=== PATIENT | female | born 1980 | race Two or more races ===

== ENCOUNTER 2016-03-13 23:58 | Emergency (ER) | payer MEDICAID ==
[~2016-03-13] VITALS: Ht 157.5 cm; Wt 72.6 kg
[2016-03-14 00:03] VITALS: BP 146/93
== END 2016-03-14 02:11 | disposition home or self-care (01) ==
LOC: ER 03-14 00:02
DX: J06.9 Acute upper respiratory infection, unspecified (principal); J45.909 Unspecified asthma, uncomplicated
CPT/HCPCS: 99281; A4606; Z7610; Z7502

== ENCOUNTER 2016-10-13 09:27 | Emergency (ER) | payer MEDICAID ==
[~2016-10-13] VITALS: Ht 165.1 cm; Wt 90.7 kg
--- NOTE | 2016-10-13 09:50 | NUR ---
BB DAUGHTER FROM HOME FOR ABD PAIN SINCE THIS AM. +NAUSEA AND VOMITING AND DIARRHEA. NAD NOTED. PT AAO X4, AMB WITH STEADY GAIT. RR EVEN AND UNLABORED. DR CENTENO AT BEDSIDE FOR EVAL.
[2016-10-13] MEDS ORDERED: ONDANSETRON 4 MG TAB.RAPDIS SL ONE (10:00)
[2016-10-13] MEDS ORDERED: KETOROLAC TROMETHAMINE INJ 60 MG/2 ML VIAL IM ONE (10:00)
[2016-10-13] MEDS ORDERED: ONDANSETRON HCL/PF 4 MG/2 ML VIAL ONE (10:03)
[2016-10-13] MEDS ORDERED: KETOROLAC TROMETHAMINE INJ 30 MG/ML VIAL ONE (10:03)
[2016-10-13 10:08] LABS: APPEARANCE,URINE Slightly Cloudy (CLEAR); BILIRUBIN,URINE SMALL (NEGATIVE); BLOOD, URINE Small Ery/uL (NEGATIVE); KETONES,URINE Trace (NEGATIVE); LEUKOCYTE ESTERASE ,URINE Trace (NEGATIVE); NITRITE, URINE Negative (NEGATIVE); PH,URINE 6.5 (5.0-8.0); PROTEIN,URINE Trace mg/dl (NEGATIVE); UGLUCOSE Negative (NEGATIVE); UROBILINOGEN,URINE 0.2 EU/dL (0.2)
[2016-10-13 10:08] LABS: BASOPHILS % (AUTO) 0.3 % (0.0-2.0); EOSINOPHILS # (AUTO) 0.2 /CMM (0.0-0.7); EOSINOPHILS % (AUTO) 2.1 % (0.0-6.0); HEMATOCRIT 45 % (33-45); HEMOGLOBIN 15.6 g/dL (11.5-14.8); LYMPHOCYTES # (AUTO) 2.7 /CMM (0.8-4.8); LYMPHOCYTES % (AUTO) 23.7 % (20.0-44.0); MEAN CORPUSCULAR HEMOGLOBIN 32 PG (26.0-33.0); MEAN CORPUSCULAR HGB CONC 35 g/dl (31.0-36.0); MEAN CORPUSCULAR VOLUME 93 fL (82-100); MONOCYTES # (AUTO) 0.7 /CMM (0.1-1.30); MONOCYTES % (AUTO) 5.9 % (2.0-12.0); NEUTROPHILS # (AUTO) 7.7 /CMM (1.8-8.9); PLATELET COUNT (AUTO) 263 /CMM (150-450); RDW COEFFICIENT OF VARIATION 12.3 (11.5-15.0); RED BLOOD CELL COUNT(AUTO) 4.88 MIL/uL (4.0-5.2); WHITE BLOOD COUNT (AUTO) 11.3 K/uL (4.3-11.0)
[2016-10-13 10:09] LABS: COLOR,URINE Dark Yellow (YELLOW)
[2016-10-13 10:12] LABS: PREGNANCY TEST URINE QUAL NEGATIVE (NEGATIVE)
[2016-10-13 10:18] LABS: BACTERIA,URINE Few /HPF (None Seen); MUCUS,URINE Few /LPF (None Seen); SQUAMOUS EPITHELIAL CELL,UR Few /HPF (None Seen)
[2016-10-13 10:25] LABS: CALCIUM, SERUM 8.5 mg/dL (8.5-10.1); CREATININE 0.7 mg/dL (0.6-1.3); POTASSIUM 3.5 mmol/L (3.5-5.1)
[2016-10-13] MEDS ORDERED: KETOROLAC TROMETHAMINE INJ 30 MG/ML VIAL IV ONE (10:30)
[2016-10-13] MEDS ORDERED: ONDANSETRON HCL/PF - ER 4 MG/2 ML VIAL IV ONE (10:30)
[2016-10-13 10:37] LABS: ALBUMIN 3.7 g/dL (3.4-5.0); BILIRUBIN,DIRECT 0.1 mg/dL (0.0-0.2); BILIRUBIN,TOTAL 0.3 mg/dL (0.2-1.0); TOTAL PROTEIN, SERUM 7.6 g/dL (6.4-8.2)
[2016-10-13] MEDS ORDERED: HYDROCODONE/APAP 5/325MG 1 EACH TABLET ONE (11:19)
[2016-10-13] MEDS ORDERED: HYDROCODONE/APAP 5/325MG 1 EACH TABLET PO ONE (11:30)
[2016-10-13 12:56] VITALS: BP 122/80
[2016-10-13] MEDS ORDERED: FAMOTIDINE (20 MG) 20 MG TABLET PO ONE (13:00)
== END 2016-10-13 12:59 | disposition home or self-care (01) ==
LOC: ER 09:29
DX: N39.0 Urinary tract infection, site not specified (principal); J45.909 Unspecified asthma, uncomplicated; K76.0 Fatty (change of) liver, not elsewhere classified; N20.0 Calculus of kidney; Z87.442 Personal history of urinary calculi
CPT/HCPCS: 36415; 74176; 76705; 80048; 80076; 81001; 83690; 84703; 85025; 96374; 96375; 99285; A4606; J1885; J2405 ×2; Z7610; 71250-TC; 81000-TC

== ENCOUNTER 2017-04-27 20:57 | Emergency (ER) | payer MEDICAID ==
[~2017-04-27] VITALS: Ht 167.6 cm; Wt 81.6 kg
--- NOTE | 2017-04-27 20:57 | NUR ---
PT BIB SELF FROM HOME, PT C/O HEADACHE X 2 WEEKS. NO SOB BUT PAIN 5/10. VSS A/OX4 NAD WILL CONTINUE TO MONITOR FOR ANY CHANGES
[2017-04-27] MEDS ORDERED: diphenhydrAMINE HCL 50 MG/ML VIAL ONE (22:50)
[2017-04-27] MEDS ORDERED: METOCLOPRAMIDE HCL 10 MG/2 ML VIAL ONE (22:50)
[2017-04-27] MEDS ORDERED: IV NS 0.9% 250 ML BAG IV ONE (23:00)
[2017-04-27] MEDS ORDERED: METOCLOPRAMIDE HCL 10 MG/2 ML VIAL IV ONE ×2 (23:00→23:30)
[2017-04-27] MEDS ORDERED: diphenhydrAMINE HCL 50 MG/ML VIAL IV ONE (23:00)
[2017-04-28 00:01] VITALS: BP 127/88
== END 2017-04-28 00:02 | disposition home or self-care (01) ==
LOC: ER 21:01
DX: G43.909 Migraine, unspecified, not intractable, without status migrainosus (principal); J45.909 Unspecified asthma, uncomplicated
CPT/HCPCS: A4606; J1200; J2765; J7050; Z7610

== ENCOUNTER 2017-04-29 19:52 | Emergency (ER) | payer MEDICAID ==
[~2017-04-29] VITALS: Ht 165.1 cm; Wt 81.6 kg
--- NOTE | 2017-04-29 20:33 | NUR ---
PT A/OX4 BREATHING EFFORTLESSLY ON ROOM AIR, PT STATES SHE HAS HAD A HEADACHE X 2 WEEKS AND WAS HERE A COUPLE DAYS AGO FOR SAME COMPLAINT AND TOLD TO COME BACK IF NOT FEELING BETTER, MD MADE AWARE WILL CONTINUE TO MONITOR.
[2017-04-29] MEDS ORDERED: diphenhydrAMINE HCL 50 MG/ML VIAL IV ONE (21:30)
[2017-04-29] MEDS ORDERED: PROCHLORPERAZINE EDISYLATE 10 MG/2 ML VIAL IV ONE (21:30)
[2017-04-29] MEDS ORDERED: KETOROLAC TROMETHAMINE INJ 30 MG/ML VIAL IV ONE (21:30)
[2017-04-29] MEDS ORDERED: DEXAMETHASONE SOD PHOSPHATE 10 MG/ML VIAL IV ONE (21:30)
[2017-04-29 21:34] LABS: BASOPHILS # (AUTO) 0.1 /CMM (0.0-0.2); BASOPHILS % (AUTO) 0.6 % (0.0-2.0); EOSINOPHILS # (AUTO) 0.2 /CMM (0.0-0.7); EOSINOPHILS % (AUTO) 1.1 % (0.0-6.0); HEMATOCRIT 42 % (33-45); HEMOGLOBIN 14.6 g/dL (11.5-14.8); LYMPHOCYTES # (AUTO) 3.2 /CMM (0.8-4.8); LYMPHOCYTES % (AUTO) 23.2 % (20.0-44.0); MEAN CORPUSCULAR HEMOGLOBIN 32 PG (26.0-33.0); MEAN CORPUSCULAR HGB CONC 35 g/dl (31.0-36.0); MEAN CORPUSCULAR VOLUME 92 fL (82-100); MONOCYTES # (AUTO) 0.8 /CMM (0.1-1.30); MONOCYTES % (AUTO) 5.4 % (2.0-12.0); NEUTROPHILS # (AUTO) 9.6 /CMM (1.8-8.9); NEUTROPHILS % (AUTO) 69.7 % (43.0-81.0); PLATELET COUNT (AUTO) 252 /CMM (150-450); RDW COEFFICIENT OF VARIATION 12.2 (11.5-15.0); RED BLOOD CELL COUNT(AUTO) 4.57 MIL/uL (4.0-5.2); WHITE BLOOD COUNT (AUTO) 13.9 K/uL (4.3-11.0)
[2017-04-29 21:44] LABS: CALCIUM, SERUM 8.4 mg/dL (8.5-10.1); CREATININE 1.1 mg/dL (0.6-1.3); POTASSIUM 3.3 mmol/L (3.5-5.1)
[2017-04-29] MEDS ORDERED: DEXAMETHASONE SOD PHOSPHATE 10 MG/ML VIAL ONE (22:00)
[2017-04-29] MEDS ORDERED: POTASSIUM CHLORIDE 20 MEQ TAB.PRT.SR PO ONE ×2 (22:00→22:14)
[2017-04-29] MEDS ORDERED: Magnesium 1GM/D5W 100ML PREMIX 100 ML IV SCH (22:00)
[2017-04-29] MEDS ORDERED: diphenhydrAMINE HCL 50 MG/ML VIAL ONE (22:00)
[2017-04-29] MEDS ORDERED: KETOROLAC TROMETHAMINE INJ 30 MG/ML VIAL ONE (22:01)
[2017-04-29] MEDS ORDERED: PROCHLORPERAZINE EDISYLATE 10 MG/2 ML VIAL ONE (22:01)
[2017-04-29] MEDS ORDERED: Magnesium 1GM/D5W 100ML PREMIX 100 ML IV ONE (22:14)
[2017-04-29 23:52] VITALS: BP 145/89
--- NOTE | 2017-04-29 23:52 | NUR ---
Patient discharged to home in stable condition. Written and verbal after care instructions given. Patient verbalizes understanding of instruction.IV removed. Catheter intact and site benign. Pressure and 4x4 applied to site. No bleeding noted.
== END 2017-04-29 23:53 | disposition home or self-care (01) ==
LOC: ER 19:54
DX: G43.909 Migraine, unspecified, not intractable, without status migrainosus (principal); E87.6 Hypokalemia; R42 Dizziness and giddiness; J45.909 Unspecified asthma, uncomplicated
CPT/HCPCS: 36415; 70450-TC; 80048-TC; 85025-TC; A4606; J0780; J1100; J1200; J1885; J3475; Z7610

== ENCOUNTER 2017-05-22 09:53 | Emergency (ER) | payer MEDICAID ==
[~2017-05-22] VITALS: Ht 157.5 cm; Wt 77.1 kg
[2017-05-22 10:09] VITALS: BP 134/91
== END 2017-05-22 10:53 | disposition home or self-care (01) ==
LOC: ER 09:56
DX: J02.0 Streptococcal pharyngitis (principal); J45.909 Unspecified asthma, uncomplicated; G43.909 Migraine, unspecified, not intractable, without status migrainosus
CPT/HCPCS: 99281; A4606; Z7610; Z7502

== ENCOUNTER 2017-05-24 16:32 | Emergency (ER) | payer MEDICAID ==
[~2017-05-24] VITALS: Ht 160 cm; Wt 72.6 kg
[2017-05-24 16:40] VITALS: BP 137/89
[2017-05-24] MEDS ORDERED: LORAZEPAM 1 MG TABLET ONE (17:39)
[2017-05-24] MEDS: LORAZEPAM 1 MG TABLET PO ONE (17:43)
[2017-05-24] MEDS: IV NS 0.9% 1,000 ML BAG IV ONE (17:43)
== END 2017-05-24 18:45 | disposition home or self-care (01) ==
LOC: ER 16:34
DX: F12.10 Cannabis abuse, uncomplicated (principal); J45.909 Unspecified asthma, uncomplicated; G43.909 Migraine, unspecified, not intractable, without status migrainosus
CPT/HCPCS: A4606; J7030; Z7610

== ENCOUNTER 2017-11-19 11:43 | Emergency (ER) | payer MEDICAID ==
[~2017-11-19] VITALS: Ht 154.9 cm; Wt 78.9 kg
[2017-11-19] MEDS ORDERED: NAPROXEN 250 MG TABLET ONE (12:21)
[2017-11-19] MEDS ORDERED: NAPROXEN 250 MG TABLET PO ONE (12:30)
[2017-11-19 13:36] LABS: APPEARANCE,URINE CLEAR (CLEAR); BILIRUBIN,URINE NEGATIVE (NEGATIVE); BLOOD, URINE TRACE Ery/uL (NEGATIVE); COLOR,URINE YELLOW (YELLOW); KETONES,URINE NEGATIVE (NEGATIVE); LEUKOCYTE ESTERASE ,URINE TRACE (NEGATIVE); NITRITE, URINE NEGATIVE (NEGATIVE); PH,URINE 7.5 (5.0-8.0); PROTEIN,URINE NEGATIVE (NEGATIVE); UGLUCOSE NEGATIVE (NEGATIVE); UROBILINOGEN,URINE 0.2 EU/dL (0.2)
[2017-11-19 13:42] LABS: BACTERIA,URINE Few /HPF (None Seen); RBC,URINE 0-2 /HPF (0-2); SQUAMOUS EPITHELIAL CELL,UR Few /HPF (None Seen)
[2017-11-19 13:59] VITALS: BP 124/84
--- NOTE | 2017-11-19 14:01 | NUR ---
Patient discharged to home in stable condition. Written and verbal after care instructions given. Patient verbalizes understanding of instruction.
== END 2017-11-19 14:00 | disposition home or self-care (01) ==
LOC: ER 11:47
DX: S16.1XXA Strain of muscle, fascia and tendon at neck level, initial encounter (principal); M26.601 Right temporomandibular joint disorder, unspecified; F41.9 Anxiety disorder, unspecified; J45.909 Unspecified asthma, uncomplicated; G43.909 Migraine, unspecified, not intractable, without status migrainosus; X58.XXXA Exposure to other specified factors, initial encounter; Y93.89 Activity, other specified; Y92.89 Other specified places as the place of occurrence of the external cause; Y99.8 Other external cause status
CPT/HCPCS: 81001; 84703; 99284; A4606; Z7610; 81000-TC

== ENCOUNTER 2018-09-13 01:12 | Emergency (ER) | payer MEDICAID ==
[~2018-09-13] VITALS: Ht 160 cm; Wt 79.8 kg
--- NOTE | 2018-09-13 01:50 | NUR ---
PT BIBSELF C/C LOWER ABD PAIN X2WKS, +DIARRHEA, +HEMATURIA AND BLOOD IN STOOL 3DAYS. PT STATED ITS BEEN GETTING WORSE. PT AOX4. NAD NOTED. RESP EVEN AND UNLABORED. PT SLOVENIAN SPEAKING. PT ON MONITOR IN BED 11. WILL CONTINUE TO MONITOR.
[2018-09-13] MEDS ORDERED: MORPHINE SULFATE INJ 4 MG/ML DISP.SYRIN ONE (02:26)
[2018-09-13] MEDS ORDERED: ONDANSETRON HCL/PF 4 MG/2 ML VIAL ONE (02:26)
[2018-09-13] MEDS ORDERED: MORPHINE SULFATE INJ 2 MG/ML DISP.SYRIN IV ONE (02:30)
[2018-09-13] MEDS ORDERED: ONDANSETRON HCL/PF 4 MG/2 ML VIAL IVP ONE (02:30)
[2018-09-13] MEDS ORDERED: IV NS 0.9% 1,000 ML BAG IV ONE (02:30)
--- NOTE | 2018-09-13 02:30 | NUR ---
RAC 20G INITIATED. BLOOD DRAWN AND GIVEN TO LAB. URINE COLLECTED AND GIVEN TO LAB.
[2018-09-13 02:46] LABS: APPEARANCE,URINE SL CLOUDY (CLEAR); BILIRUBIN,URINE NEGATIVE (NEGATIVE); BLOOD, URINE 3+ Ery/uL (NEGATIVE); COLOR,URINE YELLOW (YELLOW); KETONES,URINE NEGATIVE (NEGATIVE); LEUKOCYTE ESTERASE ,URINE NEGATIVE (NEGATIVE); NITRITE, URINE NEGATIVE (NEGATIVE); PH,URINE 6.5 (5.0-8.0); PROTEIN,URINE NEGATIVE (NEGATIVE); UGLUCOSE NEGATIVE (NEGATIVE); UROBILINOGEN,URINE 0.2 EU/dL (0.2)
[2018-09-13 02:47] LABS: BASOPHILS % (AUTO) 0.3 % (0.0-2.0); EOSINOPHILS % (AUTO) 1.4 % (0.0-6.0); HEMATOCRIT 43 % (33-45); HEMOGLOBIN 15.1 g/dL (11.5-14.8); LYMPHOCYTES # (AUTO) 2.8 /CMM (0.8-4.8); LYMPHOCYTES % (AUTO) 23.2 % (20.0-44.0); MEAN CORPUSCULAR HGB CONC 35 g/dl (31.0-36.0); MEAN CORPUSCULAR VOLUME 93 fL (82-100); MONOCYTES # (AUTO) 0.8 /CMM (0.1-1.30); MONOCYTES % (AUTO) 6.7 % (2.0-12.0); NEUTROPHILS # (AUTO) 8.3 /CMM (1.8-8.9); NEUTROPHILS % (AUTO) 68.4 % (43.0-81.0); PLATELET COUNT (AUTO) 220 /CMM (150-450); RED BLOOD CELL COUNT(AUTO) 4.67 MIL/uL (4.0-5.2); WHITE BLOOD COUNT (AUTO) 12.2 K/uL (4.3-11.0)
[2018-09-13 02:51] LABS: BACTERIA,URINE None seen /HPF (None Seen); RBC,URINE 21-50 /HPF (0-2); SQUAMOUS EPITHELIAL CELL,UR Moderate /HPF (None Seen); WBC,URINE 0-2 /HPF (0-3)
[2018-09-13 02:59] LABS: ALBUMIN 3.7 g/dL (3.4-5.0); BILIRUBIN,DIRECT 0.1 mg/dL (0.0-0.2); BILIRUBIN,TOTAL 0.2 mg/dL (0.2-1.0); CALCIUM, SERUM 8.8 mg/dL (8.5-10.1); CREATININE 0.9 mg/dL (0.6-1.3); POTASSIUM 3.4 mmol/L (3.5-5.1); TOTAL PROTEIN, SERUM 7.8 g/dL (6.4-8.2)
--- NOTE | 2018-09-13 03:01 | NUR ---
PT TAKEN TO RADIOLOGY VIA LIZZY
--- NOTE | 2018-09-13 03:24 | NUR ---
PT RETURNED FROM RADIOLOGY. TOLERATED WELL.
[2018-09-13] MEDS ORDERED: CT SWABBABLE VALVE TRANS SET 1 EA INFUS.SET MC ONE (03:34)
[2018-09-13] MEDS ORDERED: IOHEXOL-300 100 ML VIAL IV ONE (03:34)
[2018-09-13] MEDS ORDERED: IV NS 0.9% 250 ML IV ONE (03:35)
[2018-09-13 04:12] VITALS: BP 132/88
[2018-09-13] MEDS ORDERED: KETOROLAC TROMETHAMINE INJ 30 MG/ML VIAL ONE (04:29)
[2018-09-13] MEDS ORDERED: KETOROLAC TROMETHAMINE INJ 30 MG/ML VIAL IV ONE (04:30)
--- NOTE | 2018-09-13 06:38 | NUR ---
IV removed. Catheter intact and site benign. Pressure and 4x4 applied to site. No bleeding noted.Patient discharged to home in stable condition. Written and verbal after care instructions given. Patient verbalizes understanding of instruction. PT AMBULATORY WITH STEADY GAIT.
== END 2018-09-13 06:39 | disposition home or self-care (01) ==
LOC: ER 01:14
DX: N83.202 Unspecified ovarian cyst, left side (principal); G43.909 Migraine, unspecified, not intractable, without status migrainosus; J45.909 Unspecified asthma, uncomplicated; R19.7 Diarrhea, unspecified; Z87.442 Personal history of urinary calculi
CPT/HCPCS: 36415; 74177; 76856; 80048; 80076; 81001; 83690; 84703; 85025; 96361; 96374; 96375; 99284; J1885; J2270; J2405; J7030; J7050; Q9967; 81000-TC

== ENCOUNTER 2018-10-12 00:39 | Emergency (ER) | payer MEDICAID | END 2018-10-12 04:16 | disposition home or self-care (01) | DX: R10.30 Lower abdominal pain, unspecified (principal); G43.909 Migraine, unspecified, not intractable, without status migrainosus; J45.909 Unspecified asthma, uncomplicated; Z87.442 Personal history of urinary calculi ==

== ENCOUNTER 2019-03-20 11:53 | Emergency (ER) | payer MEDICAID ==
[~2019-03-20] VITALS: Ht 154.9 cm; Wt 79.4 kg
--- NOTE | 2019-03-20 12:07 | NUR ---
PT CAME TO ER BED 6 C/O ITCHY EYES. PATIENT STATES THAT FOR THE PAST 3 DAYS SHE HAS HAD ITCHY EYES, COUGHING, RUNNY NOSE, AND HEADACHE. AAOX4. VSS. BREATHING EVENLY AND UNLABORED ON ROOM AIR. CONNECTED TO MONITOR.
[2019-03-20 12:08] VITALS: BP 132/94
--- NOTE | 2019-03-20 12:53 | NUR ---
Patient discharged to home in stable condition. Written and verbal after care instructions given. Patient verbalizes understanding of instruction.
== END 2019-03-20 12:55 | disposition home or self-care (01) ==
LOC: ER 11:56
DX: J01.10 Acute frontal sinusitis, unspecified (principal); J01.00 Acute maxillary sinusitis, unspecified; B99.9 Unspecified infectious disease; H10.89 Other conjunctivitis; G43.909 Migraine, unspecified, not intractable, without status migrainosus; J45.909 Unspecified asthma, uncomplicated; Z87.442 Personal history of urinary calculi

== ENCOUNTER 2019-04-10 08:37 | Emergency (ER) | payer MEDICAID ==
[~2019-04-10] VITALS: Ht 149.9 cm; Wt 81.6 kg
[2019-04-10 08:50] VITALS: BP 140/94
--- NOTE | 2019-04-10 08:56 | NUR ---
AT BEDSIDE FOR EVAL.
[2019-04-10] MEDS ORDERED: KETOROLAC TROMETHAMINE INJ 60 MG/2 ML VIAL IM ONE ×2 (09:00→09:02)
--- NOTE | 2019-04-10 09:23 | NUR ---
Patient discharged to home in stable condition. Written and verbal after care instructions given. Patient verbalizes understanding of instruction.
== END 2019-04-10 09:25 | disposition home or self-care (01) ==
LOC: ER 08:37
DX: G56.01 Carpal tunnel syndrome, right upper limb (principal); G43.909 Migraine, unspecified, not intractable, without status migrainosus; J45.909 Unspecified asthma, uncomplicated; Z87.442 Personal history of urinary calculi
CPT/HCPCS: 29125; 96372; 99283; J1885

== ENCOUNTER 2019-04-12 08:41 | Emergency (ER) | payer MEDICAID ==
[~2019-04-12] VITALS: Ht 162.6 cm; Wt 80.3 kg
[2019-04-12 08:46] VITALS: BP 132/80
--- NOTE | 2019-04-12 08:58 | NUR ---
SEEN AND EXAMINED BY
--- NOTE | 2019-04-12 09:09 | NUR ---
Patient discharged to home in stable condition. Written and verbal after care instructions given. Patient verbalizes understanding of instruction.
== END 2019-04-12 09:10 | disposition home or self-care (01) ==
LOC: ER 08:45
DX: J11.1 Influenza due to unidentified influenza virus with other respiratory manifestations (principal); G43.909 Migraine, unspecified, not intractable, without status migrainosus; J45.909 Unspecified asthma, uncomplicated; Z87.442 Personal history of urinary calculi

== ENCOUNTER 2019-07-23 07:03 | Emergency (ER) | payer MEDICAID ==
[~2019-07-23] VITALS: Ht 152.4 cm; Wt 78.9 kg
--- NOTE | 2019-07-23 07:10 | NUR ---
PT BIB SELF C/O RLQ PAIN FOR 2 DAYS, PT IS AAOX4 ENGLISH SPEAKING ONLY, NOT IN RESPIRATORY DISTRESS, HOOKED TO MONITOR, KEPT RESTED AND COMFORTABLE, WILL CONTINUE TO MONITOR.
--- NOTE | 2019-07-23 07:30 | NUR ---
PT IV LINE ESTABLISHED BLOOD DRAWN AND SENT TO LAB.
[2019-07-23] MEDS: IV NS 0.9% 500 ML BAG IV ONE (07:44)
[2019-07-23] MEDS: ONDANSETRON HCL/PF 4 MG/2 ML VIAL IVP ONE (07:45)
[2019-07-23 07:51] LABS: APPEARANCE,URINE CLEAR (CLEAR); BILIRUBIN,URINE NEGATIVE (NEGATIVE); BLOOD, URINE NEGATIVE Ery/uL (NEGATIVE); COLOR,URINE YELLOW (YELLOW); KETONES,URINE NEGATIVE (NEGATIVE); LEUKOCYTE ESTERASE ,URINE TRACE (NEGATIVE); NITRITE, URINE NEGATIVE (NEGATIVE); PROTEIN,URINE NEGATIVE (NEGATIVE); UGLUCOSE NEGATIVE (NEGATIVE); UROBILINOGEN,URINE 0.2 EU/dL (0.2)
[2019-07-23] MEDS ORDERED: ONDANSETRON HCL/PF 4 MG/2 ML VIAL ONE (07:51)
[2019-07-23] MEDS ORDERED: KETOROLAC TROMETHAMINE INJ 30 MG/ML VIAL ONE (07:52)
[2019-07-23 08:17] LABS: RBC,URINE 0-2 /HPF (0-2)
[2019-07-23 08:18] LABS: BACTERIA,URINE 1+ /HPF (None Seen)
[2019-07-23 08:21] LABS: BASOPHILS % (AUTO) 0.2 % (0.0-2.0); HEMATOCRIT 46 % (33-45); HEMOGLOBIN 15.2 g/dL (11.5-14.8); LYMPHOCYTES # (AUTO) 3.4 /CMM (0.8-4.8); LYMPHOCYTES % (AUTO) 26.8 % (20.0-44.0); MEAN CORPUSCULAR HGB CONC 34 g/dl (31.0-36.0); MEAN CORPUSCULAR VOLUME 94 fL (82-100); MONOCYTES # (AUTO) 0.9 /CMM (0.1-1.30); MONOCYTES % (AUTO) 7.1 % (2.0-12.0); NEUTROPHILS # (AUTO) 8.2 /CMM (1.8-8.9); NEUTROPHILS % (AUTO) 64.9 % (43.0-81.0); PLATELET COUNT (AUTO) 236 /CMM (150-450); RED BLOOD CELL COUNT(AUTO) 4.83 MIL/uL (4.0-5.2); WHITE BLOOD COUNT (AUTO) 12.7 K/uL (4.3-11.0)
[2019-07-23 08:24] LABS: CALCIUM, SERUM 8.1 mg/dL (8.5-10.1); CREATININE 0.7 mg/dL (0.6-1.3); POTASSIUM 3.8 mmol/L (3.5-5.1)
[2019-07-23] MEDS: KETOROLAC TROMETHAMINE INJ 30 MG/ML VIAL IV ONE (08:40)
[2019-07-23 08:41] LABS: ALBUMIN 3.8 g/dL (3.4-5.0); BILIRUBIN,TOTAL 0.2 mg/dL (0.2-1.0); TOTAL PROTEIN, SERUM 7.8 g/dL (6.4-8.2)
[2019-07-23] MEDS: HYDROMORPHONE INJ 0.5 MG/0.5 ML SYRINGE IV ONE ×2 (09:00→09:29)
--- NOTE | 2019-07-23 09:00 | NUR ---
DILAUDID 0.5MG SLOW IVP GIVEN ORDERED BY ER .
[2019-07-23] MEDS ORDERED: HYDROMORPHONE 1 MG/1 ML DISP.SYRIN ONE ×2 (09:01→09:22)
[2019-07-23 11:00] VITALS: BP 136/79
--- NOTE | 2019-07-23 11:18 | NUR ---
IV removed. Catheter intact and site benign. Pressure and 4x4 applied to site. No bleeding noted.Patient discharged to home in stable condition. Written and verbal after care instructions given. Patient verbalizes understanding of instruction.
== END 2019-07-23 11:19 | disposition home or self-care (01) ==
LOC: ER 07:08
DX: N20.0 Calculus of kidney (principal); G43.909 Migraine, unspecified, not intractable, without status migrainosus; J45.909 Unspecified asthma, uncomplicated
CPT/HCPCS: 36415; 74176; 80048; 80076; 81001; 83690; 84703; 85025; 87086; 96374; 96375; 99284; J1170 ×2; J1885; J2405; J7040; 81000-TC

== ENCOUNTER 2019-09-19 10:36 | Emergency (ER) | payer MEDICAID ==
[~2019-09-19] VITALS: Ht 152.4 cm; Wt 75.7 kg
[2019-09-19 10:41] VITALS: BP 168/117
== END 2019-09-19 11:34 | disposition home or self-care (01) ==
LOC: ER 10:36
DX: R05 Cough (principal); R51 Headache; R06.02 Shortness of breath; R43.9 Unspecified disturbances of smell and taste; Z20.828 Contact with and (suspected) exposure to other viral communicable diseases; Z86.69 Personal history of other diseases of the nervous system and sense organs; J45.909 Unspecified asthma, uncomplicated; Z87.442 Personal history of urinary calculi
CPT/HCPCS: 99283; C9803; U0003

== ENCOUNTER 2020-01-22 21:36 | Emergency (ER) | payer MEDICAID ==
[~2020-01-22] VITALS: Ht 152.4 cm; Wt 75.7 kg
[2020-01-22] MEDS ORDERED: ACETAMINOPHEN 325 MG TABLET PO ONE (22:00)
--- NOTE | 2020-01-22 22:03 | NUR ---
CALLED LAB REGARDING COVID SWABS
[2020-01-22] MEDS ORDERED: ACETAMINOPHEN ES 500 MG TABLET ONE (22:08)
--- NOTE | 2020-01-22 22:20 | NUR ---
COVID SWABBED, SENT TO LAB
--- NOTE | 2020-01-22 22:46 | NUR ---
Call from lab. Rapid covid positive.
--- NOTE | 2020-01-22 22:46 | NUR ---
Sharri hurst in ED - 01/22/20 at 2309 by [email or web address] Call from lab. Rapid covid negative.
--- NOTE | 2020-01-22 23:09 | NUR ---
Patient discharged to home in stable condition. Written and verbal after care instructions given. Patient verbalizes understanding of instruction.Pt ambulatory with a steady gait
[2020-01-22 23:10] VITALS: BP 129/84
--- NOTE | 2020-01-24 14:23 | NUR ---
PATIENT CALLED TO INFORM HER THAT THE PCR DONER IS ALSO POSITIVE
== END 2020-01-22 23:10 | disposition home or self-care (01) ==
LOC: ER 21:36
DX: U07.1 COVID-19 (principal); R50.9 Fever, unspecified; M79.10 Myalgia, unspecified site
CPT/HCPCS: 71045; 87426; 87804; 99284; C9803; U0003

== ENCOUNTER 2021-02-07 15:47 | Emergency (ER) | payer MEDICAID ==
[~2021-02-07] VITALS: Ht 160 cm; Wt 55.8 kg
[2021-02-07 15:53] VITALS: BP 138/88
--- NOTE | 2021-02-07 16:00 | NUR ---
BIB C/O R HAND PAIN STARTED LAST NIGHT. NO APPARENT TRAUMA NOTED. WILL CONTINUE TO MONITOR THE PATIENT.
[2021-02-07] MEDS ORDERED: IBUPROFEN 600 MG TABLET PO ONE (16:30)
[2021-02-07] MEDS ORDERED: IBUPROFEN 600 MG TABLET ONE (16:39)
[2021-02-07] MEDS ORDERED: HYDROCODONE/APAP 5/325MG TABLET ONE (16:42)
[2021-02-07] MEDS ORDERED: HYDROCODONE/APAP 5/325MG TABLET PO ONE (17:00)
[2021-02-07] MEDS ORDERED: NAPR-1164 PO (17:06)
[2021-02-07] MEDS ORDERED: TRAM50TA2 PO (17:06)
--- NOTE | 2021-02-07 17:10 | NUR ---
02/07/2021 1710 PM Right wrist (Velcro) splint, provided by the registered nurse-SOFIA Moore
--- NOTE | 2021-02-07 17:13 | NUR ---
Patient discharged to home in stable condition. Written and verbal after care instructions given. Patient verbalizes understanding of instruction.
== END 2021-02-07 17:13 | disposition home or self-care (01) ==
LOC: ER 15:48
DX: M25.531 Pain in right wrist (principal); E11.9 Type 2 diabetes mellitus without complications; R53.1 Weakness
CPT/HCPCS: 73110

== ENCOUNTER 2021-06-30 03:53 | Emergency (ER) | payer MEDICAID ==
[~2021-06-30] VITALS: Ht 157.5 cm; Wt 80.3 kg
[~2021-06-30 03:53] MED LIST: NAPR-1164 PO; TRAM50TA2 PO
--- NOTE | 2021-06-30 04:30 | NUR ---
BIBHUSBAND. EPIGASTRIC PAIN, NAUSEA, VOMMTING, DIARRHEA AND HEADACHE X 5DAY. PT AWAKE AND ALERT BREATHING EVEN AND UNLABORED V/S WNL.
--- NOTE | 2021-06-30 04:34 | NUR ---
urine colllected and sent to lab
[2021-06-30] MEDS ORDERED: FAMOTIDINE (20 MG) 20 MG TABLET ONE (04:43)
[2021-06-30] MEDS ORDERED: MAG HYDROX/AL HYDROX/SIMETH 30 ML UDC ONE (04:43)
[2021-06-30] MEDS ORDERED: ONDANSETRON 4 MG TAB.RAPDIS ONE (04:43)
--- NOTE | 2021-06-30 04:56 | NUR ---
covid swabbed collected and sent to lab
[2021-06-30] MEDS ORDERED: ONDA4TAB5 PO (04:57)
[2021-06-30] MEDS ORDERED: FAMO20TA8 PO (04:58)
[2021-06-30] MEDS ORDERED: ACET-868 PO (04:58)
[2021-06-30] MEDS ORDERED: MAG-55 PO (04:58)
[2021-06-30] MEDS ORDERED: MAG HYDROX/AL HYDROX/SIMETH 30 ML UDC PO ONE (05:00)
[2021-06-30] MEDS ORDERED: FAMOTIDINE (20 MG) 20 MG TABLET PO ONE (05:00)
[2021-06-30] MEDS ORDERED: ONDANSETRON 4 MG TAB.RAPDIS PO ONE (05:00)
[2021-06-30 06:28] VITALS: BP 160/89
--- NOTE | 2021-06-30 06:28 | NUR ---
Patient discharged to home in stable condition. Written and verbal after care instructions given. Patient verbalizes understanding of instruction.
== END 2021-06-30 06:29 | disposition home or self-care (01) ==
LOC: ER 03:54
DX: A08.4 Viral intestinal infection, unspecified (principal); Z20.822 Contact with and (suspected) exposure to COVID-19; E11.9 Type 2 diabetes mellitus without complications
CPT/HCPCS: 84703; 87426; 99284; C9803; Q0162

== ENCOUNTER 2023-09-24 01:49 | Emergency (ER) | payer OTHER ==
[~2023-09-24] VITALS: Ht 157.5 cm; Wt 90.7 kg
[~2023-09-24 01:49] MED LIST changes: +ACET-868 PO; +FAMO20TA8 PO; +MAG-55 PO; +ONDA4TAB5 PO
[2023-09-24] MEDS ORDERED: CEPH500T PO (02:46)
[2023-09-24 02:50] VITALS: BP 141/86; TEMP 98.5; O2SAT 98
== END 2023-09-24 05:53 | disposition home or self-care (01) ==
LOC: ER 01:53
DX: L73.9 Follicular disorder, unspecified (principal); I10 Essential (primary) hypertension; E11.9 Type 2 diabetes mellitus without complications; J45.909 Unspecified asthma, uncomplicated; Z79.899 Other long term (current) drug therapy; Z79.1 Long term (current) use of non-steroidal anti-inflammatories (NSAID)

== ENCOUNTER 2023-12-15 09:26 | Emergency (ER) | payer OTHER ==
[~2023-12-15] VITALS: Ht 157.5 cm; Wt 83.5 kg
[~2023-12-15 09:26] MED LIST changes: +CEPH500T PO
[2023-12-15] MEDS ORDERED: diphenhydrAMINE HCL 50 MG/ML VIAL ONE (09:56)
[2023-12-15] MEDS ORDERED: methylPREDNISolone SOD SUCC 125 MG/2ML VIAL ONE (09:57)
[2023-12-15] MEDS ORDERED: PANTOPRAZOLE 40 MG VIAL ONE (09:57)
[2023-12-15] MEDS ORDERED: ONDANSETRON HCL/PF 4 MG/2 ML VIAL ONE (09:57)
[2023-12-15] MEDS ORDERED: FAMOTIDINE/PF INJ 20 MG/2 ML VIAL IV ONE (09:58)
[2023-12-15] MEDS ORDERED: ACETAMINOPHEN ES 500 MG TABLET ONE (09:58)
[2023-12-15] MEDS: diphenhydrAMINE HCL 50 MG/ML VIAL IV ONE (10:21)
[2023-12-15] MEDS: IV NS 0.9% 1,000 ML BAG IV ONE (10:22)
[2023-12-15] MEDS: ACETAMINOPHEN ES 500 MG TABLET PO ONE (10:22)
[2023-12-15] MEDS: methylPREDNISolone SOD SUCC 125 MG/2ML VIAL IV ONE (10:22)
[2023-12-15] MEDS: ONDANSETRON HCL/PF 4 MG/2 ML VIAL IVP ONE (10:22)
[2023-12-15] MEDS: FAMOTIDINE/PF INJ 20 MG/2 ML VIAL IV ONE (10:22)
[2023-12-15] MEDS: PANTOPRAZOLE 40 MG VIAL IV ONE (10:22)
[2023-12-15 10:23] LABS: BASOPHILS # (AUTO) 0.1 K/uL (0.0-0.2); BASOPHILS % (AUTO) 0.9 % (0.0-2.0); EOSINOPHILS # (AUTO) 0.1 K/uL (0.0-0.7); EOSINOPHILS % (AUTO) 1.1 % (0.0-6.0); HEMATOCRIT 40 % (33-45); HEMOGLOBIN 13.3 g/dL (11.5-14.8); LYMPHOCYTES # (AUTO) 2.5 K/uL (0.8-4.8); LYMPHOCYTES % (AUTO) 21.5 % (20.0-44.0); MEAN CORPUSCULAR HEMOGLOBIN 31 PG (26.0-33.0); MEAN CORPUSCULAR HGB CONC 34 g/dl (31.0-36.0); MEAN CORPUSCULAR VOLUME 94 fL (82-100); MONOCYTES # (AUTO) 0.6 K/uL (0.1-1.30); MONOCYTES % (AUTO) 5.6 % (2.0-12.0); NEUTROPHILS # (AUTO) 8.1 K/uL (1.8-8.9); NEUTROPHILS % (AUTO) 70.9 % (43.0-81.0); PLATELET COUNT (AUTO) 265 K/uL (150-450); RED BLOOD CELL COUNT(AUTO) 4.24 MIL/uL (4.0-5.2); RED CELL DISTRIBUTION WIDTH 13.6 % (11.5-15.0); WHITE BLOOD COUNT (AUTO) 11.4 K/uL (4.3-11.0)
[2023-12-15 10:30] LABS: CALCIUM, SERUM 8.8 mg/dL (8.5-10.1); CARBON DIOXIDE 27 mmol/L (21-32); CHLORIDE 104 mmol/L (98-107); CREATININE 0.7 mg/dL (0.6-1.3); GLUCOSE 96 mg/dL (74-106); POTASSIUM 3.8 mmol/L (3.5-5.1); SODIUM SERUM 138 mmol/L (136-145); UREA NITROGEN, BLOOD 13 mg/dL (7-18)
[2023-12-15 10:36] LABS: ALANINE AMINOTRANSFERASE 29 U/L (12-78); ALBUMIN 3.4 g/dL (3.4-5.0); ALKALINE PHOSPHATASE 90 U/L (46-116); ASPARTATE AMINOTRANSFERASE 16 U/L (15-37); BILIRUBIN,DIRECT 0.1 mg/dL (0.0-0.2); BILIRUBIN,TOTAL 0.2 mg/dL (0.2-1.0); LIPASE 38 U/L (16-77); TOTAL PROTEIN, SERUM 7.2 g/dL (6.4-8.2)
[2023-12-15 12:58] LABS: APPEARANCE,URINE CLEAR (CLEAR); BILIRUBIN,URINE NEGATIVE (NEGATIVE); BLOOD, URINE NEGATIVE Ery/uL (NEGATIVE); COLOR,URINE OTHER (YELLOW); KETONES,URINE NEGATIVE (NEGATIVE); LEUKOCYTE ESTERASE ,URINE NEGATIVE (NEGATIVE); NITRITE, URINE NEGATIVE (NEGATIVE); PROTEIN,URINE NEGATIVE (NEGATIVE); UGLUCOSE NEGATIVE (NEGATIVE); UROBILINOGEN,URINE 0.2 EU/dL (0.2)
[2023-12-15] MEDS ORDERED: PRED20TA PO (13:18)
[2023-12-15] MEDS ORDERED: FAMO-131 PO (13:18)
[2023-12-15 14:04] VITALS: BP 130/86; TEMP 97; O2SAT 99
== END 2023-12-15 14:05 | disposition home or self-care (01) ==
LOC: ER 09:32
DX: T78.49XA Other allergy, initial encounter (principal); R10.13 Epigastric pain; R11.2 Nausea with vomiting, unspecified; E11.9 Type 2 diabetes mellitus without complications; I10 Essential (primary) hypertension; J45.909 Unspecified asthma, uncomplicated; X58.XXXA Exposure to other specified factors, initial encounter
CPT/HCPCS: 99285; 96374; 96375; 76705; 96361; 85025; 80048; 87086; 83690; 80076; 81003; 36415; 84484; J1200; J3490; J2919; J2405; J2470

== ENCOUNTER 2024-05-18 10:00 | Emergency (ER) | payer OTHER ==
[~2024-05-18] VITALS: Ht 154.9 cm; Wt 83.9 kg
[~2024-05-18 10:00] MED LIST changes: +FAMO-131 PO; +PRED20TA PO
[2024-05-18] MEDS ORDERED: KETOROLAC TROMETHAMINE INJ 30 MG/ML VIAL ONE (11:05)
[2024-05-18] MEDS: KETOROLAC TROMETHAMINE INJ 30 MG/ML VIAL IM ONE (11:14)
[2024-05-18] MEDS ORDERED: IBUP-1490 PO (12:58)
[2024-05-18] MEDS ORDERED: CYCL10TA9 PO (12:58)
[2024-05-18 13:10] VITALS: BP 128/66; TEMP 97.5; O2SAT 99
== END 2024-05-18 13:11 | disposition home or self-care (01) ==
LOC: ER 10:23
DX: M62.838 Other muscle spasm (principal); I10 Essential (primary) hypertension; E11.9 Type 2 diabetes mellitus without complications; J45.909 Unspecified asthma, uncomplicated; Z79.52 Long term (current) use of systemic steroids; Z79.899 Other long term (current) drug therapy
CPT/HCPCS: 99284; 96372; 72050; 73030; J1885